=== PATIENT | female | born 1940 | race Caucasian/White ===

== ENCOUNTER 2021-05-18 20:57 | Emergency (ER) | payer MEDICARE, OTHER ==
[2021-05-18 21:35] LABS: BASOPHILS % (AUTO) 0.6 %; EOSINOPHILS # (AUTO) 0.2 10^3/uL (0.0-0.7); EOSINOPHILS % (AUTO) 2.6 %; HCT - HEMATOCRIT 42.9 % (37.0-47.0); HGB - HEMOGLOBIN 14.2 g/dL (12.0-16.0); LYMPHOCYTES # (AUTO) 1.3 10^3/uL (1.5-3.5); LYMPHOCYTES % (AUTO) 21.1 %; MEAN CORPUSCULAR HEMOGLOBIN 31.1 pg (27.0-31.0); MEAN CORPUSCULAR HGB CONC 33.1 g/dL (32.0-36.0); MEAN CORPUSCULAR VOLUME 94.1 fL (81.0-99.0); MEAN PLATELET VOLUME 9.4 fL (7.9-10.8); MONOCYTES # (AUTO) 0.5 10^3/uL (0.0-1.0); MONOCYTES % (AUTO) 8.1 %; NEUTROPHILS # (AUTO) 4.2 10^3/uL (1.5-6.6); NEUTROPHILS % (AUTO) 67.3 %; PLT - PLATELET COUNT 229 10^3/uL (130-450); RED BLOOD COUNT 4.56 10^6/uL (4.20-5.40); RED CELL DISTRIBUTION WIDTH 12.1 % (12.0-15.0); WHITE BLOOD COUNT 6.2 x10^3/uL (4.8-10.8)
[2021-05-18 21:39] LABS: ALBUMIN 4.8 g/dL (3.2-5.5); ALBUMIN/GLOBULIN RATIO 1.7 (1.0-2.2); BILIRUBIN,TOTAL 0.5 mg/dL (0.2-1.0); CALCIUM 9.6 mg/dL (8.5-10.3); CREATININE 0.8 mg/dL (0.4-1.0); POTASSIUM 3.7 mmol/L (3.5-5.0); TOTAL PROTEIN 7.6 g/dL (6.7-8.2)
[2021-05-18 21:51] LABS: BILIRUBIN,URINE NEGATIVE (NEGATIVE); GLUCOSE, URINE (UA) NEGATIVE (NEGATIVE); KETONES,URINE (UA) NEGATIVE (NEGATIVE); LEUKOCYTE ESTERASE, URINE NEGATIVE (NEGATIVE); NITRITE,URINE NEGATIVE (NEGATIVE); OCCULT BLOOD,URINE NEGATIVE (NEGATIVE); PH,URINE 7.5 PH (5.0-7.5); PROTEIN,URINE NEGATIVE (NEGATIVE); UROBILINOGEN,URINE 0.2 (NORMAL) E.U./dL (NORMAL)
[2021-05-18 21:52] LABS: CLARITY,URINE CLEAR (CLEAR)
--- NOTE | 2021-05-18 21:56 | ED Physician Documentation ---
History of Present Illness - Stated complaint Stated Complaint: ABD PX - Chief complaint Chief Complaint: Abd Pain - History obtained from History obtained from: Patient - Additonal information Additional information: 81yF p/w RUQ pain intermittent over the past 24 hours, aching/sore, 8/10 last night, improving over the past 12 hours with associated bloating. currently /. Hasn't eaten all day today. Worse with twisting, poking the area, and taking a deep breath. denies fever, cough, soa. no n/v/d. no history of abdominal surgeries. Review of Systems Ten Systems: 10 systems reviewed and negative Constitutional: denies: Fever, Chills GI: reports: Abdominal Pain. denies: Nausea, Vomiting, Diarrhea : denies: Dysuria, Frequency, Hematuria Musculoskeletal: denies: Back pain PD PAST MEDICAL HISTORY - Allergies Allergies/Adverse Reactions: Allergies Allergy/AdvReac Type Severity Reaction Status Date / Time No Known Drug Allergies Allergy Verified 05/18/21 21:02 PD ED PE NORMAL - Vitals Vital signs reviewed: Yes - General General: Alert and oriented X 3, No acute distress, Well developed/nourished - HEENT HEENT: Atraumatic, PERRL, EOMI - Neck Neck: Supple, no meningeal sign - Cardiac Cardiac: RRR - Respiratory Respiratory: No respiratory distress, Clear bilaterally - Abdomen Abdomen: Non tender, Non distended, Other (RUQ and epigastrium discomfort with palpation) - Back Back: No CVA TTP - Derm Derm: Normal color, Warm and dry - Neuro Neuro: Alert and oriented X 3, No motor deficit, No sensory deficit - Psych Psych: Normal mood, Normal affect Results - Vitals Vitals: Vital Signs - 24 hr 05/18/21 21:02 Temperature 36.5 C Heart Rate 80 Respiratory 16 Rate Blood Pressure 150/72 H O2 Saturation 97 Oxygen O2 Source Room air - Labs Labs: Laboratory Tests 05/18/21 05/18/21 05/18/21 21:14 21:19 21:19 WBC 6.2 RBC 4.56 Hgb 14.2 Hct 42.9 MCV 94.1 MCH 31.1 H MCHC 33.1 RDW 12.1 Plt Count 229 MPV 9.4 Neut # (Auto) 4.2 Lymph # (Auto) 1.3 L [place] # (Auto) 0.5 Eos # (Auto) 0.2 Baso # (Auto) 0.0 Absolute Nucleated RBC 0.00 Nucleated RBC % 0.0 Sodium 139 Potassium 3.7 Chloride 99 L Carbon Dioxide 29 Anion Gap 11.0 BUN 19 Creatinine 0.8 Estimated GFR (MDRD) 69 L Glucose 100 Calcium 9.6 Total Bilirubin 0.5 AST 21 ALT 16 Alkaline Phosphatase 114 Total Protein 7.6 Albumin 4.8 Globulin 2.8 Albumin/Globulin Ratio 1.7 Lipase 28 Urine Color YELLOW Urine Clarity CLEAR Urine pH 7.5 Ur Specific [place] 1.010 Urine Protein NEGATIVE Urine Glucose (UA) NEGATIVE Urine Ketones NEGATIVE Urine Occult Blood NEGATIVE Urine Nitrite NEGATIVE Urine Bilirubin NEGATIVE Urine Urobilinogen 0.2 (NORMAL) Ur Leukocyte Esterase NEGATIVE Ur Microscopic Review NOT INDICATED Urine Culture Comments NOT INDICATED PD MEDICAL DECISION MAKING - ED course ED course: 81yF p/w RUQ pain X 24 h, with normal bloodwork, negative u/s RUQ. return precautions given. patient will f/u with pmd. Departure - Departure Disposition: 01 Home, Self Care Clinical Impression: Abdominal pain Condition: Good Instructions: Abdominal Pain Comments: You were seen in the emergency department for evaluation of abdominal pain. Your labwork showed no acute emergent issues and your ultrasound was normal. Please follow up with your primary doctor and return to the emergency department if you have fever, new or worsening symptoms or other concerns.
[2021-05-18 23:13] VITALS: BP 158/72
--- NOTE | 2021-05-18 23:39 | Ultrasound Report ---
PROCEDURE: Abdomen Limited INDICATIONS: RUQ pain TECHNIQUE: Real-time focused scanning was performed of the right upper quadrant, with image documentation. COMPARISON: None. FINDINGS: The liver is normal in size with mildly coarse sonographic echotexture. No discrete focal hepatic les ions identified. The gallbladder demonstrates no gallstones, wall thickening, or pericholecystic fluid. No definite intra or extrahepatic biliary ductal dilatation, with evaluation of the distal common rosina t limited by bowel gas. The visualized distal common bile duct measures approximately 4 mm. Evaluation of the pancreas is also limited by bowel gas. The main pancreatic duct appears mildly prom inent measuring 2 to 3 mm. The right kidney measures 8.7 cm. No hydronephrosis. IMPRESSION: 1. No evidence of cholelithiasis or cholecystitis. 2. No definite biliary ductal dilatation. 3. Mildly prominent hepatic duct without a discrete pancreatic mass identified on limited sonographic evaluation. If clinically indicated, follow-up evaluation may be obtained with a pancreatic protocol CT or MRI. Reviewed by: Konstantin Tafoya MD on 05/18/2021 11:38 PM PST Approved by: Konstantin Tafoya MD on 05/18/2021 11:38 PM PST Station ID: [id number]
== END 2021-05-18 23:20 | disposition home or self-care (01) ==
LOC: ED 20:57
DX: R10.11 Right upper quadrant pain (principal)
CPT/HCPCS: 36415; 80053; 81001; 81003; 83690; 85025; 87086; 99282; 99284